=== PATIENT | female | born 1940 | race Hispanic/Latino ===

== ENCOUNTER 2021-04-17 08:47 | Inpatient (IN) | payer MEDICARE ==
[~2021-04-17] VITALS: Ht 137.2 cm; Wt 81.0 kg
[2021-04-17 09:06] LABS: BASOPHILS % (AUTO) 0.3 % (0.0-5.0); EOSINOPHILS % (AUTO) 2.4 % (0.0-8.0); LYMPHOCYTES % (AUTO) 23.7 % (21.0-51.0); MEAN CORPUSCULAR HEMOGLOBIN 29.1 pg (27.0-33.0); MEAN CORPUSCULAR HGB CONC 31.4 g/dL (32.0-36.0); NEUTROPHILS % (AUTO) 67.9 % (40.0-77.0); PLATELET COUNT (AUTO) 315 K/uL (130-400); RED BLOOD CELL COUNT(AUTO) 3.98 MIL/uL (4.00-5.50); RED CELL DISTRIBUTION WIDTH 13.5 % (11.0-15.5); WHITE BLOOD COUNT (AUTO) 11.8 K/uL (4.8-10.8)
[2021-04-17 09:15] LABS: CARBON DIOXIDE 27 mmol/L (21-32); CHLORIDE 106 mmol/L (101-111); GLOMERULAR FILTR. RATE CALC 56 mL/min (>60); GLUCOSE,RANDOM 117 mg/dL (70-105); POTASSIUM 3.6 mmol/L (3.5-5.1); SODIUM SERUM 143 mmol/L (136-145); UREA NITROGEN, BLOOD 22 mg/dL (7-18)
[2021-04-17 09:27] LABS: ALANINE AMINOTRANSFERASE 22 U/L (12-78); ALBUMIN 3.4 g/dL (3.5-5.0); ASPARTATE AMINOTRANSFERASE 21 U/L (10-37); BILIRUBIN,TOTAL 0.8 mg/dL (0.2-1.0); CREATINE KINASE, TOTAL 36 U/L (21-232); MYOGLOBIN 53 ng/mL (10-92); TOTAL PROTEIN, SERUM 7.2 g/dL (6.0-8.3); TROPONIN I < 0.04 ng/mL (0.00-0.06)
[2021-04-17] MEDS ORDERED: ASPIRIN 325 MG TABLET PO SCH (09:30)
[2021-04-17] MEDS ORDERED: ONDANSETRON HCL 4 MG/2 ML VIAL IVP SCH (09:30)
[2021-04-17] MEDS ORDERED: ENOXAPARIN SODIUM 80 MG/0.8 ML SQ SCH (09:30)
[2021-04-17] MEDS ORDERED: MORPHINE 4 MG SYG (4MG/1ML) IV SCH (09:30)
[2021-04-17] MEDS ORDERED: DILTIAZEM HCL 5 MG/ML 5 ML VIAL IVP SCH (09:30)
[2021-04-17] MEDS ORDERED: DILTIAZEM HCL 5 MG/ML 10 ML VIAL IV ONE (09:58)
[2021-04-17 10:25] VITALS: BP 117/82
[2021-04-17] MEDS ORDERED: FAMOTIDINE/PF 20 MG/2 ML VIAL IV SCH (10:30)
[2021-04-17] MEDS ORDERED: MORPHINE 2 MG SYG (2MG/1ML) IVP SCH (10:30)
[2021-04-17] MEDS ORDERED: IOHEXOL-350 75 ML VIAL IV ONE (11:30)
[2021-04-17 13:06] VITALS: BP 125/65
[2021-04-17] MEDS ORDERED: METOPROLOL TARTRATE 50 MG TAB PO SCH (15:53)
[2021-04-17 19:55] VITALS: BP 110/61
[2021-04-17 21:39] VITALS: BP 120/85
[2021-04-17 22:32] VITALS: BP 123/67
[2021-04-17] MEDS: METOPROLOL TARTRATE 25 MG TAB PO SCH (22:32)
[2021-04-17] MEDS: TRAMADOL HCL 50 MG TABLET PO PRN (22:32)
[2021-04-17] MEDS ORDERED: ESOM20CA60 PO (23:39)
[2021-04-17] MEDS ORDERED: LORA10TA7 PO (23:39)
[2021-04-17 23:47] VITALS: BP 122/75
[2021-04-18] VITALS (7 sets, daily range): BP systolic 123–151; BP diastolic 60–106
[2021-04-18 01:17] LABS: TROPONIN I 0.11 ng/mL (0.00-0.06)
[2021-04-18 06:00] LABS: BASOPHILS % (AUTO) 0.2 % (0.0-5.0); EOSINOPHILS % (AUTO) 0.7 % (0.0-8.0); HEMATOCRIT 37.1 % (36-48); LYMPHOCYTES % (AUTO) 23.5 % (21.0-51.0); MEAN CORPUSCULAR HGB CONC 32.3 g/dL (32.0-36.0); MEAN CORPUSCULAR VOLUME 92.8 fL (79-99); MONOCYTES % (AUTO) 5.8 % (3.0-13.0); NEUTROPHILS % (AUTO) 69.4 % (40.0-77.0); PLATELET COUNT (AUTO) 286 K/uL (130-400); RED CELL DISTRIBUTION WIDTH 13.8 % (11.0-15.5); WHITE BLOOD COUNT (AUTO) 10.7 K/uL (4.8-10.8)
[2021-04-18 06:31] LABS: CREATININE 1.1 mg/dL (0.5-1.5); MAGNESIUM 1.3 mg/dL (1.80-2.40); POTASSIUM 4.4 mmol/L (3.5-5.1); THYROID STIMULATING HORMONE 0.62 uIU/mL (0.36-3.74)
[2021-04-18] MEDS: METOPROLOL TARTRATE 25 MG TAB PO SCH ×2 (08:52→21:22)
[2021-04-18 08:59] LABS: TROPONIN I 0.09 ng/mL (0.00-0.06)
[2021-04-18] MEDS ORDERED: MAGNESIUM 2GM PREMIX 50ML 50 ML IV SCH (09:15)
[2021-04-18] MEDS ORDERED: ASPIRIN 81 MG EC TAB PO SCH (09:15)
[2021-04-19] VITALS: BP 121/64
[2021-04-19 04:00] VITALS: BP 117/93
[2021-04-19 04:17] LABS: HEMATOCRIT 35.1 % (36-48); MEAN CORPUSCULAR HEMOGLOBIN 29.8 pg (27.0-33.0); MEAN CORPUSCULAR HGB CONC 32.8 g/dL (32.0-36.0); MEAN CORPUSCULAR VOLUME 90.9 fL (79-99); PLATELET COUNT (AUTO) 264 K/uL (130-400); RED BLOOD CELL COUNT(AUTO) 3.86 MIL/uL (4.00-5.50); WHITE BLOOD COUNT (AUTO) 14.2 K/uL (4.8-10.8)
[2021-04-19 04:29] LABS: MAGNESIUM 1.6 mg/dL (1.80-2.40); POTASSIUM 3.9 mmol/L (3.5-5.1)
[2021-04-19 04:59] LABS: BAND NEUTROPHILS % (MANUAL) 1 % (0-2); LYMPHOCYTES % (MANUAL) 20 % (22-44); MAN.DIFF COMMENT-IMPRESSION MANUAL DIFFERENTIAL; MONOCYTES % (MANUAL) 5 % (2-9); SEGMENTED NEUTROPHILS % 74 % (40-70)
[2021-04-19 07:23] VITALS: BP 143/84
[2021-04-19] MEDS: ENOXAPARIN SODIUM 80 MG/0.8 ML SQ SCH ×2 (09:45→19:36)
[2021-04-19] MEDS: ASPIRIN 81 MG EC TAB PO SCH (09:49)
[2021-04-19] MEDS: METOPROLOL TARTRATE 25 MG TAB PO SCH ×2 (09:50→21:18)
[2021-04-19 11:06] VITALS: BP 124/75
[2021-04-19 15:37] VITALS: BP 151/86
[2021-04-19 20:00] VITALS: BP 135/69
[2021-04-20] VITALS (19 sets, daily range): BP systolic 95–146; BP diastolic 45–84
[2021-04-20] MEDS: ASPIRIN 81 MG EC TAB PO SCH (06:52)
[2021-04-20] MEDS: METOPROLOL TARTRATE 25 MG TAB PO SCH ×3 (07:35→20:46)
[2021-04-20] MEDS ORDERED: PROPOFOL 10 MG/ML 20ML VIAL IV ONE ×2 (09:04→09:24)
[2021-04-20] MEDS ORDERED: LIDOCAINE PF 100MG/5ML (2%) SYRINGE 5ML ONE (09:07)
[2021-04-20] MEDS: TRAMADOL HCL 50 MG TABLET PO PRN (10:33)
[2021-04-20] MEDS: SODIUM CHLORIDE 0.9% 1000ML 1,000 ML IV SCH ×2 (13:14→13:23)
[2021-04-20] MEDS ORDERED: IOHEXOL-350 75 ML VIAL IV ONE (16:18)
[2021-04-21 03:50] VITALS: BP 120/58
[2021-04-21 05:19] LABS: HEMATOCRIT 32.4 % (36-48); MEAN CORPUSCULAR HEMOGLOBIN 29.2 pg (27.0-33.0); MEAN CORPUSCULAR HGB CONC 32.4 g/dL (32.0-36.0); PLATELET COUNT (AUTO) 249 K/uL (130-400); RED CELL DISTRIBUTION WIDTH 13.8 % (11.0-15.5); WHITE BLOOD COUNT (AUTO) 10.7 K/uL (4.8-10.8)
[2021-04-21 05:28] LABS: POTASSIUM 3.8 mmol/L (3.5-5.1)
[2021-04-21 05:41] LABS: BAND NEUTROPHILS % (MANUAL) 1 % (0-2); EOSINOPHILS % (MANUAL) 2 % (1-6); LYMPHOCYTES % (MANUAL) 20 % (22-44); MONOCYTES % (MANUAL) 2 % (2-9); SEGMENTED NEUTROPHILS % 75 % (40-70)
[2021-04-21 05:45] LABS: MAN.DIFF COMMENT-IMPRESSION MANUAL DIFFERENTIAL
[2021-04-21 05:47] LABS: PLATELET MORPHOLOGY COMMENT ADEQUATE
[2021-04-21 08:04] VITALS: BP 135/85
[2021-04-21] MEDS: ASPIRIN 81 MG EC TAB PO SCH (08:06)
[2021-04-21] MEDS: METOPROLOL TARTRATE 25 MG TAB PO SCH (08:06)
[2021-04-21] MEDS ORDERED: APIXABAN 2.5 MG TABLET PO SCH ×2 (10:45→21:00)
[2021-04-21 12:00] VITALS: BP 130/65
== END 2021-04-21 14:43 | disposition home or self-care (01) | DRG 988 ==
LOC: EDH 08:47 → EDHIP 15:45 → 4CH 04-18 08:43
PROVIDERS: ADMIT Internal Medicine Nephrology; ATTEND Internal Medicine Nephrology
PROC: 0UDB7ZZ Extraction of Endometrium, Via Natural or Artificial Opening (ICD-10-PCS; principal; 2021-04-20 08:00)
DX: I48.0 Paroxysmal atrial fibrillation (principal); D68.69 Other thrombophilia; E11.9 Type 2 diabetes mellitus without complications; E78.00 Pure hypercholesterolemia, unspecified; E78.5 Hyperlipidemia, unspecified; F41.9 Anxiety disorder, unspecified; G47.30 Sleep apnea, unspecified; I07.1 Rheumatic tricuspid insufficiency; I10 Essential (primary) hypertension; I25.10 Atherosclerotic heart disease of native coronary artery without angina pectoris; I42.0 Dilated cardiomyopathy; K27.9 Peptic ulcer, site unspecified, unspecified as acute or chronic, without hemorrhage or perforation; K57.90 Diverticulosis of intestine, part unspecified, without perforation or abscess without bleeding; N85.2 Hypertrophy of uterus; N85.7 Hematometra; N83.202 Unspecified ovarian cyst, left side; N83.201 Unspecified ovarian cyst, right side; Z79.899 Other long term (current) drug therapy; Z82.49 Family history of ischemic heart disease and other diseases of the circulatory system; Z83.3 Family history of diabetes mellitus; Z79.84 Long term (current) use of oral hypoglycemic drugs
CPT/HCPCS: 36415; 71045; 71275; 74177; 76856; 78582; 80048; 80053; 80061; 82550; 82948; 83735; 83874; 84443; 84484; 85025; 85378; 87070; 87076; 87205; 93005; 93306; 93356; 93970; A4351; A9540; A9558; G0378; J1650; J2001; J2270; J2405; J2704; J3475; J3490; J7030; Q9967

== ENCOUNTER 2021-05-11 03:10 | Inpatient (IN) | payer MEDICARE ==
[2021-05-11] VITALS (7 sets, daily range): BP systolic 132–176; BP diastolic 66–97
[~2021-05-11] VITALS: Ht 152.4 cm; Wt 75.2 kg
[~2021-05-11 03:10] MED LIST: ESOM20CA60 PO; LORA10TA7 PO
[2021-05-11 04:22] LABS: BASOPHILS % (AUTO) 0.5 % (0.0-5.0); HEMATOCRIT 36.5 % (36-48); LYMPHOCYTES % (AUTO) 25.6 % (21.0-51.0); MEAN CORPUSCULAR HEMOGLOBIN 29.5 pg (27.0-33.0); MEAN CORPUSCULAR HGB CONC 31.2 g/dL (32.0-36.0); MEAN CORPUSCULAR VOLUME 94.3 fL (79-99); MONOCYTES % (AUTO) 11.1 % (3.0-13.0); NEUTROPHILS % (AUTO) 59.4 % (40.0-77.0); PLATELET COUNT (AUTO) 276 K/uL (130-400); RED BLOOD CELL COUNT(AUTO) 3.87 MIL/uL (4.00-5.50)
[2021-05-11 04:35] LABS: CREATININE 0.7 mg/dL (0.5-1.5)
[2021-05-11 04:37] LABS: ALBUMIN 3.3 g/dL (3.5-5.0); BILIRUBIN,TOTAL 0.9 mg/dL (0.2-1.0); TOTAL PROTEIN, SERUM 6.6 g/dL (6.0-8.3)
[2021-05-11 04:42] LABS: B-TYPE NATRIURETIC PEPTIDE 323 pg/mL (0-100)
[2021-05-11] MEDS ORDERED: DILTIAZEM 50MG VIAL IV ONE (05:39)
[2021-05-11] MEDS: DILTIAZEM 25MG INJ IVP SCH (06:19)
[2021-05-11] MEDS ORDERED: ACETAMINOPHEN 325 MG TAB ONE ×3 (06:25→23:45)
[2021-05-11] MEDS ORDERED: ACETAMINOPHEN 325 MG TAB PO ONE (06:30)
[2021-05-11] MEDS: METOPROLOL TARTRATE 25 MG TAB PO SCH ×2 (08:46→21:00)
[2021-05-11] MEDS ORDERED: PANTOPRAZOLE 40 MG TAB DR PO SCH (12:45)
[2021-05-11] MEDS ORDERED: ONDANSETRON 4MG INJ IVP PRN (12:45)
[2021-05-11 12:58] LABS: CREATINE KINASE, TOTAL 32 U/L (21-232); MYOGLOBIN 46 ng/mL (10-92); TROPONIN I < 0.04 ng/mL (0.00-0.06)
[2021-05-11] MEDS: METOCLOPRAMIDE 5 MG TABLET PO SCH ×2 (16:30→21:00)
[2021-05-11] MEDS: APIXABAN 2.5 MG TABLET PO SCH (21:00)
[2021-05-12] VITALS (10 sets, daily range): BP systolic 127–178; BP diastolic 73–104
[2021-05-12] MEDS ORDERED: ACETAMINOPHEN 325 MG TAB ONE (05:17)
[2021-05-12] MEDS: DILTIAZEM 25MG INJ IVP SCH (05:45)
[2021-05-12 07:34] LABS: BASOPHILS % (AUTO) 0.3 % (0.0-5.0); EOSINOPHILS % (AUTO) 2.9 % (0.0-8.0); HEMATOCRIT 38.7 % (36-48); LYMPHOCYTES % (AUTO) 22.9 % (21.0-51.0); MEAN CORPUSCULAR HEMOGLOBIN 29.4 pg (27.0-33.0); MEAN CORPUSCULAR HGB CONC 31.3 g/dL (32.0-36.0); MEAN CORPUSCULAR VOLUME 94.2 fL (79-99); MONOCYTES % (AUTO) 9.9 % (3.0-13.0); NEUTROPHILS % (AUTO) 63.7 % (40.0-77.0); PLATELET COUNT (AUTO) 263 K/uL (130-400); RED BLOOD CELL COUNT(AUTO) 4.11 MIL/uL (4.00-5.50); RED CELL DISTRIBUTION WIDTH 14.8 % (11.0-15.5); WHITE BLOOD COUNT (AUTO) 8.9 K/uL (4.8-10.8)
[2021-05-12 07:48] LABS: CREATININE 0.9 mg/dL (0.5-1.5); PHOSPHORUS 3.6 mg/dL (2.5-4.9); POTASSIUM 3.7 mmol/L (3.5-5.1)
[2021-05-12] MEDS: APIXABAN 2.5 MG TABLET PO SCH ×2 (11:04→22:27)
[2021-05-12] MEDS: METOPROLOL TARTRATE 25 MG TAB PO SCH (11:05)
[2021-05-12] MEDS: PANTOPRAZOLE 40 MG TAB DR PO SCH (11:05)
[2021-05-12] MEDS: METOCLOPRAMIDE 5 MG TABLET PO SCH ×4 (11:06→22:27)
[2021-05-12] MEDS ORDERED: METOPROLOL TARTRATE 50 MG TAB PO SCH (13:00)
[2021-05-12] MEDS: METOPROLOL TARTRATE 50 MG TAB PO SCH (22:27)
[2021-05-13 03:54] VITALS: BP 141/75
[2021-05-13 05:05] LABS: BASOPHILS % (AUTO) 0.4 % (0.0-5.0); EOSINOPHILS % (AUTO) 2.7 % (0.0-8.0); HEMATOCRIT 37.5 % (36-48); LYMPHOCYTES % (AUTO) 15.9 % (21.0-51.0); MEAN CORPUSCULAR HGB CONC 31.2 g/dL (32.0-36.0); MEAN CORPUSCULAR VOLUME 92.8 fL (79-99); MONOCYTES % (AUTO) 11.1 % (3.0-13.0); NEUTROPHILS % (AUTO) 69.4 % (40.0-77.0); PLATELET COUNT (AUTO) 294 K/uL (130-400); RED BLOOD CELL COUNT(AUTO) 4.04 MIL/uL (4.00-5.50); RED CELL DISTRIBUTION WIDTH 14.6 % (11.0-15.5); WHITE BLOOD COUNT (AUTO) 10.9 K/uL (4.8-10.8)
[2021-05-13 05:13] LABS: CREATININE 0.8 mg/dL (0.5-1.5); PHOSPHORUS 3.3 mg/dL (2.5-4.9); POTASSIUM 3.6 mmol/L (3.5-5.1)
[2021-05-13] MEDS: METOCLOPRAMIDE 5 MG TABLET PO SCH (07:10)
[2021-05-13 08:00] VITALS: BP 177/91
[2021-05-13] MEDS ORDERED: METO50 PO (08:43)
[2021-05-13] MEDS ORDERED: APIX2.5T PO (08:43)
[2021-05-13] MEDS: PANTOPRAZOLE 40 MG TAB DR PO SCH (09:41)
[2021-05-13] MEDS: METOPROLOL TARTRATE 50 MG TAB PO SCH (09:41)
[2021-05-13] MEDS: APIXABAN 2.5 MG TABLET PO SCH (09:41)
== END 2021-05-13 12:00 | disposition home or self-care (01) | DRG 310 ==
LOC: EDH 03:20 → EDHIP 06:58 → OBSVTOIN 06:58 → 3CH 05-12 07:26
PROVIDERS: ADMIT Internal Medicine Nephrology; ATTEND Internal Medicine Nephrology
DX: I48.91 Unspecified atrial fibrillation (principal); I10 Essential (primary) hypertension; I25.10 Atherosclerotic heart disease of native coronary artery without angina pectoris; K21.9 Gastro-esophageal reflux disease without esophagitis; Z91.14 Patient's other noncompliance with medication regimen; Z82.49 Family history of ischemic heart disease and other diseases of the circulatory system; Z83.3 Family history of diabetes mellitus; E78.00 Pure hypercholesterolemia, unspecified
CPT/HCPCS: 36415; 71045; 76700; 80048; 80053; 82150; 82550; 83690; 83874; 83880; 84100; 84484; 85025; 93005; G0378; J3490

== ENCOUNTER → 2021-08-12 | Outpatient (CLI) | payer MEDICARE ==
[~2021-08-12] MED LIST changes: +APIX2.5T PO; +METO50 PO
== END | disposition home or self-care (01) ==
LOC: SHCH 15:48
PROVIDERS: ATTEND Internal Medicine Cardiovascular Disease
DX: I08.8 Other rheumatic multiple valve diseases (principal); I50.22 Chronic systolic (congestive) heart failure; I48.19 Other persistent atrial fibrillation
CPT/HCPCS: 93306